=== PATIENT | female | born 1990 | race Caucasian/White ===

== ENCOUNTER 2018-11-16 19:10 | Emergency (ER) | payer OTHER ==
[~2018-11-16] VITALS: Ht 157.5 cm; Wt 57.6 kg
[2018-11-16 19:35] VITALS: Ht 157.5 cm; Wt 57.6 kg
[2018-11-16 23:22] VITALS: BP 103/71
== END 2018-11-16 23:22 | disposition home or self-care (01) ==
LOC: ED 19:10
DX: K08.89 Other specified disorders of teeth and supporting structures (principal)
CPT/HCPCS: J1885